=== PATIENT | female | born 1995 | race Caucasian/White ===

== ENCOUNTER → 2017-02-18 | Outpatient (CLI) | payer OTHER ==
[~2017-02-18] MED LIST: CEFA500C82 PO; CEFD300C3 PO; CEPH500C PO; FRS325T PO; HYDR-3583 PO; IBP600T1 PO; OXYC-12 PO; PREN-115 PO
--- NOTE | 2017-02-18 15:37 | Diagnostic Imaging Report ---
EXAMINATION: Right breast ultrasound. INDICATION: Right breast palpable lump for 1.5 weeks. FINDINGS: There is a palpable lump in the medial aspect of the right breast around the 3 o'clock zone with no underlying abnormality seen with ultrasound at or around the palpable area. IMPRESSION: Negative study. A mammogram was not performed at this time due to the young patient age and low risk. If symptoms persist, a mammogram could be obtained. Clinical followup is recommended. ACR BI-RADS Category 1: Negative. Dictated by: Dictated on workstation # [id number]
== END ==
LOC: RAD 07:41
PROVIDERS: ATTEND Physician Assistant Medical
DX: N63.10 Unspecified lump in the right breast, unspecified quadrant (principal)